=== PATIENT | female | born 1965 | race Caucasian/White ===

== ENCOUNTER 2020-01-09 07:49 | Outpatient (CLI) | payer BC ==
--- NOTE | 2020-01-09 09:06 | CT ---
CT ABDOMEN AND PELVIS WITH IV CONTRAST 01/09/2020 CLINICAL INFORMATION: Chronic right lower quadrant abdominal pain. COMPARISON: None. Technique: Multiple contiguous axial CT images are obtained through the abdomen and pelvis with IV contrast. Cor onal reformatted images are provided. FINDINGS: Lower Chest: Lung bases are clear. Vessels: Abdominal aorta is normal in caliber. Abdomen: Portal vein:Patent Gallbladder: Within normal limits for CT imaging. Liver: within normal limits. Spleen: Calcified granuloma visualized. Pancreas: within normal limits. Adrenals: within normal limits. Kidneys: Subcentimeter too small to characterize hypodense lesions in the superior and inferior pole right kidney. Left kidney has a normal CT appearance. There are increased number of serpiginous vessels medial and slightly inferior to the left kidney suggesting small varices. Bowel: Normal caliber. Appendix: The appendix is visualized and normal in caliber. Peritoneum: No ascites or free air; no fluid collection. Mesentery and Retroperitoneum: No enlarged mesenteric or retroperitoneal lymph nodes. Abdominal Wall: within normal limits. Pelvis: Reproductive Organs: Evidence of hysterectomy. Bladder: Incompletely distended but has a normal appearance. Bones: Degenerative changes within the lower thoracic as well as involving the lumbar spine Schmorl's nodes seen at the L2-3 and L4-5 levels. Mild right convex curvature lumbar spine is present. Degenerative changes seen. Symphysis. IMPRESSION: 1. No acute findings in the abdomen or pelvis. 2. Nonspecific increased number of serpiginous vessels inferior and inferomedial to the left kidney s uggesting small varices. 3. Hysterectomy. 4. Subcentimeter too small to characterize hypodense lesions right kidney. 5. No CT evidence of appendicitis.
== END 2020-01-09 07:50 | disposition home or self-care (01) ==
LOC: SCSCT 07:49
PROVIDERS: ATTEND Internal Medicine Gastroenterology
DX: R10.31 Right lower quadrant pain (principal); G89.29 Other chronic pain; N28.9 Disorder of kidney and ureter, unspecified; Z90.710 Acquired absence of both cervix and uterus
CPT/HCPCS: 74177

== ENCOUNTER 2020-06-05 07:56 | Outpatient (CLI) | payer BC | END 2020-06-05 07:57 | disposition home or self-care (01) | LOC: BICRAD 07:56 | PROVIDERS: ATTEND Internal Medicine Critical Care Medicine | DX: R06.00 Dyspnea, unspecified (principal) | CPT/HCPCS: 71046 ==

== ENCOUNTER 2022-02-10 11:03 | Outpatient (CLI) | payer BC | END 2022-02-10 11:04 | disposition home or self-care (01) | LOC: RAD 11:03 | PROVIDERS: ATTEND Internal Medicine Critical Care Medicine | DX: R06.00 Dyspnea, unspecified (principal) | CPT/HCPCS: 71046 ==